=== PATIENT | male | born 1975 | race Two or more races ===

== ENCOUNTER 2017-09-26 21:51 | Observation (INO) ==
[2017-09-26] MEDS ORDERED: MORPHINE 4 MG/1 ML VIAL IV STA (22:33)
[2017-09-26] MEDS ORDERED: SODIUM CHLORIDE 0.9% 1,000 ML IV STA (22:33)
[2017-09-26] MEDS ORDERED: ONDANSETRON 4 MG/2 ML VIAL IV STA ×2 (22:33→23:14)
[2017-09-26] MEDS ORDERED: PANTOPRAZOLE 40 MG VIAL IV STA (22:37)
[2017-09-26] MEDS ORDERED: PANTOPRAZOLE 40 MG VIAL IV ONE (22:38)
[2017-09-26 22:56] LABS: Alanine Aminotransferase 26 U/L (16-61); Albumin 4.6 G/DL (3.4-5.0); Alkaline Phosphatase 206 U/L (45-117); Amylase 27 U/L (25-115); Aspartate Amino Transferase 17 U/L (0-37); Bilirubin,Total < 0.39 MG/DL (0.2-1.0); Blood Urea Nitrogen 7 MG/DL (7-18); Glucose 428 MG/DL (74-106); Osmolality,Calculated 277.7 MOS/KG (273-304); Sodium 131 MMOL/L (136-145)
[2017-09-26] MEDS ORDERED: HYDROmorphone 2 MG/1 ML VIAL IV STA (23:14)
[2017-09-26] MEDS ORDERED: HYDROmorphone 2 MG/1 ML VIAL ONE (23:15)
[2017-09-26 23:26] LABS: Basophils % 0.5 % (0.0-0.8); Eosinophils % 0.1 % (0.00-10.9); Hematocrit 39.1 VOL% (42.0-52.0); Hemoglobin 13.2 GM/DL (14.0-18.0); Immature Granulocytes % 0.5 %; Immature Granulocytes Absolute 0.04 #; Lymphocytes # 1.4 10*3/uL (1.4-4.0); Lymphocytes % 17.5 % (21.2-54.2); Mean Corpuscular HGB Conc 33.8 GM/DL (32-36); Mean Corpuscular Hemoglobin 32 PG (27-34); Mean Corpuscular Volume 93.3 FL (87-102); Mean Platelet Volume 9.5 FL (9.6-12.0); Monocytes # 0.6 10*3/uL (0.11-0.8); Monocytes % 7.9 % (1.7-12.7); Neutrophils # 5.8 10*3/uL (1.4-7.4); Neutrophils % 73.5 % (38.7-73.9); Platelet Count 318 T/CUMM (130-400); Red Blood Count 4.19 MC/CUMM (3.8-5.5); Red Cell Distribution Width 13.3 % (9.3-17.3); White Blood Count 7.9 T/CUMM (4-12)
[2017-09-27] MEDS ORDERED: PROMETHAZINE 25 MG/1 ML VIAL IM PRN (01:09)
[2017-09-27] MEDS ORDERED: ONDANSETRON 4 MG/2 ML VIAL IV PRN (01:09)
[2017-09-27] MEDS ORDERED: ZALEPLON 5 MG CAPSULE PO PRN (01:09)
[2017-09-27] MEDS ORDERED: ALUM/MAG/SIMETH/LIDO VISC 1:1 30 ML BOTTLE PO STA ×2 (01:14→09:45)
[2017-09-27] MEDS ORDERED: ALUMINUM/MAGNES/SIMETH MAX STR 30 ML UDCUP PO PRN (01:14)
[2017-09-27] MEDS ORDERED: DEXTROSE 50% 25 GM/50 ML VIAL IV PRN ×2 (01:14→13:54)
[2017-09-27] MEDS ORDERED: GLUCAGON 1 MG VIAL IM PRN ×2 (01:14→13:54)
[2017-09-27] MEDS ORDERED: FAMOTIDINE 20 MG TABLET PO SCH (01:30)
[2017-09-27 01:53] LABS: INR 0.9
[2017-09-27] MEDS: SODIUM CHLORIDE 0.9% 1,000 ML IV SCH ×2 (02:31→13:52)
[2017-09-27] MEDS ORDERED: MORPHINE 4 MG/1 ML VIAL IV STA (03:07)
[2017-09-27] MEDS: MORPHINE 4 MG/1 ML VIAL IV PRN ×3 (03:14→13:17)
[2017-09-27] MEDS: INSULIN LISPRO 100 UNIT/ML SUBCUT SCH ×2 (05:39→12:06)
[2017-09-27 06:33] LABS: Hematocrit 33.1 VOL% (42.0-52.0); Hemoglobin 11.2 GM/DL (14.0-18.0)
[2017-09-27 06:34] LABS: Basophils % 0.5 % (0.0-0.8); Eosinophils # 0.1 10*3/uL (0.0-0.87); Hematocrit 33.1 VOL% (42.0-52.0); Hemoglobin 10.9 GM/DL (14.0-18.0); Immature Granulocytes % 0.6 %; Immature Granulocytes Absolute 0.04 #; Lymphocytes # 1.8 10*3/uL (1.4-4.0); Lymphocytes % 29.3 % (21.2-54.2); Mean Corpuscular HGB Conc 32.9 GM/DL (32-36); Mean Corpuscular Hemoglobin 31 PG (27-34); Mean Corpuscular Volume 93.8 FL (87-102); Mean Platelet Volume 9.7 FL (9.6-12.0); Monocytes # 0.7 10*3/uL (0.11-0.8); Monocytes % 10.9 % (1.7-12.7); Neutrophils # 3.6 10*3/uL (1.4-7.4); Neutrophils % 57.7 % (38.7-73.9); Platelet Count 264 T/CUMM (130-400); Red Blood Count 3.53 MC/CUMM (3.8-5.5); Red Cell Distribution Width 13.5 % (9.3-17.3); White Blood Count 6.2 T/CUMM (4-12)
[2017-09-27 07:11] LABS: Albumin 3.5 G/DL (3.4-5.0); Bilirubin,Total 1.4 MG/DL (0.2-1.0); Calcium 8.5 MG/DL (8.5-10.1); Potassium 3.6 MMOL/L (3.5-5.1); Total Protein 6.9 G/DL (6.4-8.3)
[2017-09-27] MEDS ORDERED: PANTOPRAZOLE 40 MG VIAL IV SCH (09:00)
[2017-09-27] MEDS ORDERED: MORPHINE 4 MG/1 ML VIAL IV ONE (09:40)
[2017-09-27] MEDS ORDERED: NITROGLYCERIN SL 0.4 MG TABLET SL PRN (09:41)
[2017-09-27] MEDS ORDERED: NITROGLYCERIN SL 0.4 MG TABLET SL ONE (09:42)
[2017-09-27] MEDS ORDERED: LORazepam 2 MG/1 ML VIAL IV STA (09:47)
[2017-09-27] MEDS ORDERED: LORazepam 2 MG/1 ML VIAL ONE (09:48)
[2017-09-27 09:57] LABS: Basophils % 0.6 % (0.0-0.8); Eosinophils % 0.6 % (0.00-10.9); Hemoglobin 12.1 GM/DL (14.0-18.0); Immature Granulocytes % 0.5 %; Immature Granulocytes Absolute 0.03 #; Lymphocytes # 1.4 10*3/uL (1.4-4.0); Lymphocytes % 22.2 % (21.2-54.2); Mean Corpuscular HGB Conc 34.6 GM/DL (32-36); Mean Corpuscular Hemoglobin 32 PG (27-34); Mean Corpuscular Volume 93.1 FL (87-102); Mean Platelet Volume 9.3 FL (9.6-12.0); Monocytes # 0.6 10*3/uL (0.11-0.8); Monocytes % 9.4 % (1.7-12.7); Neutrophils # 4.1 10*3/uL (1.4-7.4); Neutrophils % 66.7 % (38.7-73.9); Platelet Count 275 T/CUMM (130-400); Red Blood Count 3.76 MC/CUMM (3.8-5.5); Red Cell Distribution Width 13.5 % (9.3-17.3); White Blood Count 6.2 T/CUMM (4-12)
[2017-09-27 10:31] LABS: Alanine Aminotransferase 23 U/L (16-61); Albumin 3.6 G/DL (3.4-5.0); Alkaline Phosphatase 175 U/L (45-117); Aspartate Amino Transferase 13 U/L (0-37); Blood Urea Nitrogen 6 MG/DL (7-18); Calcium 8.4 MG/DL (8.5-10.1); Glucose 262 MG/DL (74-106); Osmolality,Calculated 274.2 MOS/KG (273-304); Potassium 3.9 MMOL/L (3.5-5.1); Sodium 134 MMOL/L (136-145); Total Protein 7.5 G/DL (6.4-8.3)
[2017-09-27] MEDS ORDERED: fentaNYL 100 MCG/2 ML VIAL ONE (11:22)
[2017-09-27 12:59] VITALS: BP 107/70
[2017-09-27 13:51] LABS: Hematocrit 33.7 VOL% (42.0-52.0); Hemoglobin 11.3 GM/DL (14.0-18.0)
[2017-09-27] MEDS ORDERED: PROPOFOL 200 MG/20 ML VIAL IV ONE (15:10)
[2017-09-27] MEDS ORDERED: LIDOCAINE 1% 5 ML VIAL ONE (15:10)
== END 2017-09-27 16:18 | disposition home or self-care (01) ==
LOC: EDUNIT# → EDBD → N.ED 21:51 → INTOOBSV 09-27 00:26 → N.EDINP 09-27 00:26 → N.3E 09-27 02:23
PROVIDERS: ADMIT Internal Medicine Infectious Disease; ATTEND Internal Medicine Infectious Disease